=== PATIENT | female | born 1990 | race Caucasian/White ===

== ENCOUNTER 2016-11-04 01:23 | Emergency (ER) | payer OTHER ==
[~2016-11-04] VITALS: Ht 160 cm; Wt 65.8 kg
[2016-11-04 01:37] LABS: URINE BILIRUBIN NEGATIVE (Negative); URINE BLOOD TRACE (Negative); URINE COLOR YELLOW; URINE GLUCOSE-RANDOM* NEGATIVE (Negative); URINE KETONES NEGATIVE (Negative); URINE NITRITE NEGATIVE (Negative); URINE PROTEIN (DIPSTICK) NEGATIVE (Negative); URINE UROBILINOGEN 0.2 E.U./dl (0.2-1.0)
[2016-11-04] MEDS ORDERED: DOXYCYCLINE 10100 MG PO (02:46)
[2016-11-04 03:21] VITALS: BP 115/85
== END 2016-11-04 03:22 | disposition home or self-care (01) ==
LOC: ER 01:23
PROVIDERS: Emergency Medicine
DX: N94.89 Other specified conditions associated with female genital organs and menstrual cycle (principal); R30.0 Dysuria; F17.210 Nicotine dependence, cigarettes, uncomplicated

== ENCOUNTER 2017-03-23 18:45 | Emergency (ER) | payer OTHER ==
[~2017-03-23] VITALS: Ht 152.4 cm; Wt 63.5 kg
[~2017-03-23 18:45] MED LIST: DOXYCYCLINE 10100 MG PO
[2017-03-23] MEDS ORDERED: ZYRTEC10 M2 PO (19:35)
[2017-03-23] MEDS ORDERED: OPCON-A EYE DRO15 M1 OPHTHALMIC (19:35)
[2017-03-23 19:43] VITALS: BP 112/83
== END 2017-03-23 19:43 | disposition home or self-care (01) ==
LOC: ER 18:45
DX: H10.13 Acute atopic conjunctivitis, bilateral (principal); F17.210 Nicotine dependence, cigarettes, uncomplicated; F10.99 Alcohol use, unspecified with unspecified alcohol-induced disorder; Z90.49 Acquired absence of other specified parts of digestive tract

== ENCOUNTER 2019-07-28 11:33 | Emergency (ER) | payer OTHER ==
[~2019-07-28] VITALS: Ht 149.9 cm; Wt 68.0 kg
[~2019-07-28 11:33] MED LIST changes: +OPCON-A EYE DRO15 M1 OPHTHALMIC; +ZYRTEC10 M2 PO
[2019-07-28 13:46] LABS: ABSOLUTE NEUTROPHILS 3.1 thou/uL (1.4-8.2); BASOPHILS 0.8 % (0.0-2.0); EOSINOPHILS 2.7 % (0.0-3.0); HEMATOCRIT 38.9 % (37.0-47.0); LYMPHOCYTES 30.6 % (24.0-44.0); MCH 28.4 pg (26.0-34.0); MCHC 33.5 g/dL (28.0-37.0); MCV 84.6 fL (80.0-100.0); MONOCYTES 8.6 % (1.0-8.0); PLATELET COUNT 168 thou/uL (150-400); POLYS 57.3 % (36.0-66.0); RBC 4.59 mil/uL (4.20-5.00); RDW 13.3 % (10.5-14.5); WBC 5.4 thou/uL (4.0-11.0)
[2019-07-28 14:05] LABS: ANION GAP 6 mmol/L (7-16); BUN 7 mg/dL (7-18); CALCIUM 9.3 mg/dL (8.5-10.1); CHLORIDE 101 mmol/L (98-107); CO2 27 mmol/L (21-32); CREATININE 0.6 mg/dL (0.6-1.0); GLUCOSE 84 mg/dL (74-106); POTASSIUM 4.1 mmol/L (3.5-5.1); SODIUM 134 mmol/L (136-145)
[2019-07-28 14:15] LABS: ALBUMIN 4.7 g/dL (3.4-5.0); SGOT 13 U/L (15-37); SGPT 20 U/L (30-65); TOTAL BILIRUBIN 0.3 mg/dL (<0.1-1.0); TOTAL PROTEIN 8.5 g/dL (6.4-8.2); TROPONIN-I <0.06 ng/mL (<0.06)
[2019-07-28] MEDS ORDERED: IBUPROFEN 600600 M1 PO (14:31)
[2019-07-28] MEDS ORDERED: TESSALON PERLE100 MG PO (14:31)
[2019-07-28] MEDS ORDERED: PREDNISONE 20 M20 MG PO (14:31)
[2019-07-28] MEDS ORDERED: PROAIR HFA8.5 GM INH (14:31)
[2019-07-28 14:35] VITALS: BP 106/63
--- NOTE | 2019-07-29 07:57 | EKG ---
[place] [address] [facility] [place] [address] ELECTROCARDIOGRAM REPORT Name: REBEL JOAQUIN Room #: [facility] Brayden#: [id number] Admission: 07/28/19 Attend Phys: Discharge: 07/28/19 Date of : [birth year] Report #: [id number] THIS REPORT FOR: //name// 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
== END 2019-07-28 14:35 | disposition home or self-care (01) ==
LOC: ER 11:33
PROVIDERS: Emergency Medicine
DX: J40 Bronchitis, not specified as acute or chronic (principal); F17.210 Nicotine dependence, cigarettes, uncomplicated; Z98.51 Tubal ligation status; Z90.49 Acquired absence of other specified parts of digestive tract

== ENCOUNTER 2019-08-22 21:19 | Emergency (ER) | payer OTHER ==
[~2019-08-22] VITALS: Ht 149.9 cm; Wt 68.0 kg
[~2019-08-22 21:19] MED LIST changes: +IBUPROFEN 600600 M1 PO; +PREDNISONE 20 M20 MG PO; +PROAIR HFA8.5 GM INH; +TESSALON PERLE100 MG PO
[2019-08-22 21:58] LABS: URINE BILIRUBIN NEGATIVE (Negative); URINE BLOOD TRACE (Negative); URINE CLARITY CLEAR; URINE COLOR YELLOW; URINE GLUCOSE-RANDOM* NEGATIVE (Negative); URINE KETONES NEGATIVE (Negative); URINE NITRITE-REFLEX NEGATIVE (Negative); URINE PROTEIN (DIPSTICK) NEGATIVE (Negative); URINE SPECIFIC GRAVITY <= 1.005 (1.005-1.035); URINE UROBILINOGEN 0.2 E.U./dl (0.2-1.0)
[2019-08-22 22:02] LABS: URINE LEUKOCYTES-REFLEX 1+ (Negative)
[2019-08-22 22:12] LABS: ABSOLUTE NEUTROPHILS 6.4 thou/uL (1.4-8.2); BASOPHILS 0.9 % (0.0-2.0); EOSINOPHILS 1.5 % (0.0-3.0); HEMATOCRIT 36.1 % (37.0-47.0); HEMOGLOBIN 12.2 gm/dL (12.0-15.0); LYMPHOCYTES 31.2 % (24.0-44.0); MCH 28.5 pg (26.0-34.0); MCHC 33.9 g/dL (28.0-37.0); MCV 84.1 fL (80.0-100.0); MONOCYTES 5.5 % (1.0-8.0); PLATELET COUNT 199 thou/uL (150-400); POLYS 60.9 % (36.0-66.0); RBC 4.29 mil/uL (4.20-5.00); RDW 13.2 % (10.5-14.5); WBC 10.6 thou/uL (4.0-11.0)
[2019-08-22 22:22] LABS: CALCIUM 9.4 mg/dL (8.5-10.1); CREATININE 0.6 mg/dL (0.6-1.0)
[2019-08-22 22:24] LABS: BACTERIA-REFLEX 1-9 Few /HPF (None Seen); CASTS None Seen /LPF (None Seen); CRYSTALS None Seen /LPF (None Seen); MUCUS None Seen strn/LPF (None Seen); SQUAMOUS 4-10 Moderate /LPF (0-3); URINE RBC 0-2 Rare /HPF (0-2); URINE WBC-REFLEX 0-5 Rare /HPF (0-5)
[2019-08-22] MEDS ORDERED: IBUPROFEN 600600 M1 PO (22:41)
[2019-08-22 22:52] VITALS: BP 128/78
== END 2019-08-22 22:50 | disposition home or self-care (01) ==
LOC: ER 21:19
PROVIDERS: Physician Assistant
DX: M54.5 Low back pain (principal); R10.2 Pelvic and perineal pain; F17.210 Nicotine dependence, cigarettes, uncomplicated; Z90.49 Acquired absence of other specified parts of digestive tract; Z98.51 Tubal ligation status

== ENCOUNTER 2019-11-06 11:17 | Emergency (ER) | payer OTHER ==
[~2019-11-06] VITALS: Ht 149.9 cm; Wt 70.3 kg
[2019-11-06] MEDS ORDERED: PREDNISONE 20 M20 M1 PO (12:01)
[2019-11-06] MEDS ORDERED: PROMETH-CODEIN 65 ML PO (12:01)
[2019-11-06 12:25] VITALS: BP 118/73
== END 2019-11-06 17:32 | disposition home or self-care (01) ==
LOC: ER 11:17
DX: R09.81 Nasal congestion (principal); Z03.818 Encounter for observation for suspected exposure to other biological agents ruled out; R05 Cough; R09.3 Abnormal sputum; R09.82 Postnasal drip; F17.210 Nicotine dependence, cigarettes, uncomplicated; Z90.49 Acquired absence of other specified parts of digestive tract; Z98.51 Tubal ligation status; Z98.890 Other specified postprocedural states

== ENCOUNTER 2020-03-19 14:53 | Emergency (ER) | payer OTHER ==
[~2020-03-19] VITALS: Ht 149.9 cm; Wt 70.3 kg
[~2020-03-19 14:53] MED LIST changes: +PREDNISONE 20 M20 M1 PO; +PROMETH-CODEIN 65 ML PO
[2020-03-19 15:16] LABS: URINE BILIRUBIN NEGATIVE (Negative); URINE BLOOD 1+ (Negative); URINE CLARITY CLEAR; URINE COLOR YELLOW; URINE GLUCOSE-RANDOM* NEGATIVE (Negative); URINE KETONES NEGATIVE (Negative); URINE NITRITE-REFLEX NEGATIVE (Negative); URINE PROTEIN (DIPSTICK) NEGATIVE (Negative); URINE SPECIFIC GRAVITY 1.015 (1.005-1.035); URINE UROBILINOGEN 0.2 E.U./dl (0.2-1.0)
[2020-03-19 15:17] LABS: URINE LEUKOCYTES-REFLEX 2+ (Negative)
[2020-03-19 15:26] LABS: SQUAMOUS >10 Many /LPF (0-3)
[2020-03-19 15:27] LABS: CASTS None Seen /LPF (None Seen); URINE WBC-REFLEX 0-5 Rare /HPF (0-5)
[2020-03-19 15:28] LABS: BACTERIA-REFLEX 1-9 Few /HPF (None Seen); CRYSTALS None Seen /LPF (None Seen); URINE RBC 0-2 Rare /HPF (0-2)
[2020-03-19 15:36] LABS: ABSOLUTE NEUTROPHILS 6.1 thou/uL (1.4-8.2); EOSINOPHILS 1.7 % (0.0-3.0); HEMATOCRIT 34.2 % (37.0-47.0); HEMOGLOBIN 12.2 gm/dL (12.0-15.0); LYMPHOCYTES 26.2 % (24.0-44.0); MCH 29.9 pg (26.0-34.0); MCHC 35.5 g/dL (28.0-37.0); MCV 84.2 fL (80.0-100.0); MONOCYTES 6.3 % (1.0-8.0); PLATELET COUNT 185 thou/uL (150-400); POLYS 64.8 % (36.0-66.0); RBC 4.07 mil/uL (4.20-5.00); RDW 13.4 % (10.5-14.5); WBC 9.4 thou/uL (4.0-11.0)
[2020-03-19 15:43] LABS: CALCIUM 8.9 mg/dL (8.5-10.1); CREATININE 0.5 mg/dL (0.6-1.0); POTASSIUM 4.2 mmol/L (3.5-5.1)
[2020-03-19 15:49] LABS: ALBUMIN 4.2 g/dL (3.4-5.0); TOTAL BILIRUBIN 0.2 mg/dL (0.2-1.0); TOTAL PROTEIN 7.7 g/dL (6.4-8.2)
[2020-03-19 17:04] VITALS: BP 123/74
[2020-03-19] MEDS ORDERED: FLAGYL500 M1 PO (17:05)
[2020-03-19] MEDS ORDERED: KEFLEX500 M1 PO (17:05)
[2020-03-19] MEDS ORDERED: MOBIC7.5 MG PO (17:05)
== END 2020-03-19 17:04 | disposition home or self-care (01) ==
LOC: ER 14:53
PROVIDERS: Physician Assistant
DX: N76.0 Acute vaginitis (principal); N39.0 Urinary tract infection, site not specified; N83.201 Unspecified ovarian cyst, right side; F17.210 Nicotine dependence, cigarettes, uncomplicated; Z90.49 Acquired absence of other specified parts of digestive tract

== ENCOUNTER 2020-10-03 10:11 | Emergency (ER) | payer OTHER ==
[~2020-10-03] VITALS: Ht 152.4 cm; Wt 72.6 kg
[~2020-10-03 10:11] MED LIST changes: +FLAGYL500 M1 PO; +KEFLEX500 M1 PO; +MOBIC7.5 MG PO
[2020-10-03 11:15] VITALS: BP 132/79
[2020-10-03] MEDS ORDERED: BACTRIM DS TAB1 EACH PO (11:17)
== END 2020-10-03 11:42 | disposition home or self-care (01) ==
LOC: ER 10:11
DX: L73.9 Follicular disorder, unspecified (principal); F17.210 Nicotine dependence, cigarettes, uncomplicated; Z90.49 Acquired absence of other specified parts of digestive tract; Z79.899 Other long term (current) drug therapy

== ENCOUNTER 2020-12-10 18:27 | Emergency (ER) | payer OTHER ==
[~2020-12-10] VITALS: Ht 149.9 cm; Wt 68.0 kg
[~2020-12-10 18:27] MED LIST changes: +BACTRIM DS TAB1 EACH PO
[2020-12-10] MEDS ORDERED: TESSALON PERLE100 MG PO ×2 (20:33→20:38)
[2020-12-10] MEDS ORDERED: MOBIC7.5 MG PO ×2 (20:33→20:38)
[2020-12-10 21:11] VITALS: BP 127/84
--- NOTE | 2020-12-12 07:21 | EKG ---
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 CARMEN : 1990 Requested By: Tamy Oquendo Order Number: [id number] MD: Edmund Barros Measurements Intervals [place] Rate: 88 P: 28 ID: [id number] QRS: 44 QRSD: 106 T: 1 QT: 356 QTc: 431 Interpretive Statements Sinus rhythm Borderline T abnormalities, anterior leads Compared to ECG 07/28/2019 11:40:47 No significant changes Electronically Signed On 12-12-2020 7:21:32 CDT by Edmund Barros [email or web address] <ELECTRONICALLY SIGNED> By: Edmund Barros MD, [facility] 12/12/20 0721 1834 1834 Edmund Barros MD, FACC /EPI
== END 2020-12-10 21:13 | disposition home or self-care (01) ==
LOC: ER 18:27
DX: J02.9 Acute pharyngitis, unspecified (principal); Z20.822 Contact with and (suspected) exposure to COVID-19; R05 Cough; R09.81 Nasal congestion; F17.210 Nicotine dependence, cigarettes, uncomplicated; Z90.49 Acquired absence of other specified parts of digestive tract; Z98.51 Tubal ligation status; Z98.890 Other specified postprocedural states

== ENCOUNTER 2021-02-08 11:52 | Emergency (ER) | payer OTHER ==
[~2021-02-08] VITALS: Ht 152.4 cm; Wt 65.8 kg
[2021-02-08 12:25] VITALS: BP 117/63
== END 2021-02-08 12:43 | disposition home or self-care (01) ==
LOC: ER 11:52
DX: U07.1 COVID-19 (principal); R05 Cough; R07.89 Other chest pain; F17.210 Nicotine dependence, cigarettes, uncomplicated; Z90.49 Acquired absence of other specified parts of digestive tract

== ENCOUNTER 2021-03-23 16:01 | Emergency (ER) | payer OTHER ==
[~2021-03-23] VITALS: Ht 152.4 cm; Wt 65.8 kg
[2021-03-23] MEDS ORDERED: FLEXERIL PO (19:05)
[2021-03-23] MEDS ORDERED: ARTHRITIS PAIN100 GM TOP (19:05)
[2021-03-23 19:20] VITALS: BP 122/70
== END 2021-03-23 19:10 | disposition home or self-care (01) ==
LOC: ER 16:01
DX: M54.2 Cervicalgia (principal); M79.10 Myalgia, unspecified site; R42 Dizziness and giddiness; F17.210 Nicotine dependence, cigarettes, uncomplicated; Z90.49 Acquired absence of other specified parts of digestive tract; Z98.890 Other specified postprocedural states; Z79.1 Long term (current) use of non-steroidal anti-inflammatories (NSAID); Z79.891 Long term (current) use of opiate analgesic; Z79.899 Other long term (current) drug therapy

== ENCOUNTER 2021-07-27 18:41 | Emergency (ER) | payer BC, OTHER ==
[~2021-07-27] VITALS: Ht 149.9 cm; Wt 70.3 kg
[~2021-07-27 18:41] MED LIST changes: +ARTHRITIS PAIN100 GM TOP; +FLEXERIL PO
[2021-07-27] MEDS ORDERED: CYCLOBENZAPRINE5 MG PO (21:02)
[2021-07-27 21:10] VITALS: BP 128/60
== END 2021-07-27 21:10 | disposition home or self-care (01) ==
LOC: ER 18:41
DX: S16.1XXA Strain of muscle, fascia and tendon at neck level, initial encounter (principal); S06.0X0A Concussion without loss of consciousness, initial encounter; F17.210 Nicotine dependence, cigarettes, uncomplicated; Z90.49 Acquired absence of other specified parts of digestive tract; Z98.51 Tubal ligation status; W22.8XXA Striking against or struck by other objects, initial encounter; Y92.89 Other specified places as the place of occurrence of the external cause; Y93.89 Activity, other specified; Y99.8 Other external cause status